=== PATIENT | male | born 1985 | race Caucasian/White ===

== ENCOUNTER 2019-02-02 12:30 | Emergency (ER) | payer OTHER ==
[2019-02-02] MEDS ORDERED: SULFAMETHOXAZOLE/TRIMETHOPRIM 800-160 MG TABLET PO ONE (14:04)
[2019-02-02] MEDS ORDERED: CEPHALEXIN 500 MG CAPSULE PO ONE (14:04)
--- NOTE | 2019-02-02 14:06 | ER Document Report ---
HPI - HPI Patient complains to provider of: skin rash Time Seen by Provider: 02/02/19 13:34 Onset: Last week Onset/Duration: Worse Quality of pain: Achy Pain Level: 2 Context: Patient complains of tender rash to right axilla. Patient denies any fever or history of MRSA. Associated Symptoms: Other - Skin rash. denies: Fever, Headache Exacerbated by: Denies Relieved by: Denies Similar symptoms previously: No Recently seen / treated by doctor: No - ROS ROS below otherwise negative: Yes Systems Reviewed and Negative: Yes All other systems reviewed and negative - CONSTITUTIONAL Constitutional: DENIES: Fever, Chills - EENT EENT: DENIES: Sore Throat - CARDIOVASCULAR Cardiovascular: DENIES: Chest pain - RESPIRATORY Respiratory: DENIES: Trouble Breathing, Coughing - MUSCULOSKELETAL Musculoskeletal: REPORTS: Extremity pain - DERM Skin Problems: Rash Past Medical History - General Information source: Patient - Social History Smoking Status: Current Every Day Smoker Smoking Education Provided: Yes Frequency of alcohol use: None Drug Abuse: None Occupation: [employer] Lives with: Family Family History: Reviewed & Not Pertinent Patient has suicidal ideation: No Patient has homicidal ideation: No Neurological Medical History: Denies: Hx Cerebrovascular Accident, Hx Seizures Renal/ Medical History: Denies: Hx Peritoneal Dialysis Musculoskeletal Medical History: Reports Hx Arthritis - GENERALIZED Surgical Hx: Negative - Immunizations Hx Diphtheria, Pertussis, Tetanus Vaccination: Yes Vertical Provider Document - CONSTITUTIONAL Agree With Documented VS: Yes Exam Limitations: No Limitations General Appearance: WD/WN, No Apparent Distress - INFECTION CONTROL TRAVEL OUTSIDE OF THE [place] IN LAST 30 DAYS: No - HEENT HEENT: Atraumatic, Normal ENT Exam, Normocephalic - NECK Neck: Normal Inspection - RESPIRATORY Respiratory: Breath Sounds Normal, No Respiratory Distress - CARDIOVASCULAR Cardiovascular: Regular Rate, Regular Rhythm Pulses: Normal: Radial - BACK Back: Normal Inspection - MUSCULOSKELETAL/EXTREMETIES Musculoskeletal/Extremeties: MAEW - NEURO Level of Consciousness: Awake, Alert, Appropriate Motor/Sensory: No Motor Deficit - DERM Integumentary: Warm, Dry Notes: Patient with multiple erythematous papular, pustular lesions to right axilla, patient with some lymphadenopathy to right axilla with surrounding erythema, no abscess, no lymphangitis. Course - Re-evaluation Re-evalutation: 02/02/19 Patient with folliculitis with one area worrisome for cellulitis. No drainable abscess at this time. Patient nontoxic in appearance. Discussed good return precautions. Patient stable for discharge at this time. - Vital Signs Vital signs: Temp Pulse Resp BP Pulse Ox 98.0 F 83 18 119/75 99 02/02/19 13:07 02/02/19 13:07 02/02/19 13:07 02/02/19 13:07 02/02/19 13:07 Discharge - Discharge Clinical Impression: Folliculitis Cellulitis Qualifiers: Site of cellulitis: extremity Site of cellulitis of extremity: axilla Laterality: right Qualified Code(s): L03.111 - Cellulitis of right axilla Condition: Stable Disposition: HOME, SELF-CARE Instructions: Cellulitis ([facility]), Cephalexin ([facility]), Folliculitis ([facility]), Trimethoprim-Sulfa ([facility]) Additional Instructions: Return immediately for any new or worsening symptoms Followup with your primary care provider, call tomorrow to make a followup appointment Prescriptions: Cephalexin Monohydrate [Keflex 500 mg Capsule] 500 mg PO Q6H 7 Days capsule Naproxen [Naprosyn 250 Nmg Tablet] 1 tab PO BID #14 tablet Sulfamethoxazole/Trimethoprim [Bactrim Ds Tablet] 1 each PO BID #20 tablet Referrals: [facility] [[facility]] - Follow up as needed
[2019-02-02 14:15] VITALS: BP 140/88
== END 2019-02-02 14:15 | disposition home or self-care (01) ==
LOC: ER 12:30
DX: L73.9 Follicular disorder, unspecified (principal); F17.200 Nicotine dependence, unspecified, uncomplicated
CPT/HCPCS: 99282

== ENCOUNTER 2019-02-26 12:06 | Emergency (ER) | payer OTHER ==
[2019-02-26] MEDS ORDERED: CLINDAMYCIN 600 MG/D5W RTU 600 MG/50 ML RTUPB IV ONE (12:44)
--- NOTE | 2019-02-26 12:47 | ER Document Report ---
ED Medical Screen (RME) - General Chief Complaint: Leg Pain Stated Complaint: LEG SWELLING Time Seen by Provider: 02/26/19 12:40 Primary Care Provider: WILLIAN,BRADFORD [Primary Care Provider] - Follow up as needed TRAVEL OUTSIDE OF THE [place] IN LAST 30 DAYS: No - HPI Notes: 02/26/19 12:44 Patient is a 34-year-old male with no significant past medical history who presents complaining of right anterior lateral knee/right lower leg redness, swelling, and pain over the past couple days. Patient states that he was bit or stung by something to his knee area and since then has noticed progressive symptoms to his right leg. Denies drug allergies or IV drug abuse. Denies any prolonged immobilization, distance travel, recent surgery/trauma, personal cancer history, hormone use, smoking, or previous DVT/PE. Denies LIVE, fever, neck pain, URI, CP, SOB, Abd pain, dysuria, back pain. I have treated and performed a rapid initial assessment of this patient. A comprehensive ED assessment and evaluation of the patient, analysis of test results and completion of medical decision making process will be conducted by additional ED providers. PHYSICAL EXAMINATION: GENERAL: Well-appearing, well-nourished and in no acute distress. A&Ox4. Answers questions appropriately. LUNGS: Breath sounds clear to auscultation bilaterally and equal. No wheezes rales or rhonchi. HEART: Regular rate and rhythm without murmurs, rubs, gallops. Rt LE: 1+ pitting edema with erythema, warmth. + tenderness to the rt anterior lateral knee with associated insect bite/sting and erythema/swelling/warmth. Pt can still move his knee through FROM otherwise. N/V intact distal. No bony tenderness. Tenderness is primarily anterior. Higher suspicion for cellulitis at this time than DVT based on his H&P. - Related Data Allergies/Adverse Reactions: No Known Allergies Allergy (Verified 02/26/19 12:07) Past Medical History - Social History Frequency of alcohol use: None Drug Abuse: None - Past Medical History Cardiac Medical History: Reports: Hx Hypertension Denies: Hx Coronary Artery Disease, Hx Heart Attack Pulmonary Medical History: Denies: Hx Asthma, Hx Bronchitis, Hx COPD, Hx Pneumonia Neurological Medical History: Denies: Hx Cerebrovascular Accident, Hx Seizures Renal/ Medical History: Denies: Hx Peritoneal Dialysis Musculoskeltal Medical History: Reports Hx Arthritis - GENERALIZED - Immunizations Hx Diphtheria, Pertussis, Tetanus Vaccination: Yes Physical Exam - Vital signs Vitals: Temp Pulse Resp BP Pulse Ox 98.3 F 70 20 110/84 95 02/26/19 12:10 02/26/19 12:10 02/26/19 12:10 02/26/19 12:10 02/26/19 12:10 Course - Vital Signs Vital signs: Temp Pulse Resp BP Pulse Ox 98.3 F 70 20 110/84 95 02/26/19 12:10 02/26/19 12:10 02/26/19 12:10 02/26/19 12:10 02/26/19 12:10 Doctor's Discharge - Discharge Referrals: [facility] [[facility]] - Follow up as needed
[2019-02-26 13:36] LABS: ABSOLUTE EOSINOPHILS # (AUTO) 0.1 10^3/uL (0.0-0.6); ABSOLUTE MONOCYTES (AUTO) 1.1 10^3/uL (0.1-1.4); ABSOLUTE NEUT (AUTO) 12.4 10^3/uL (1.7-8.2); BASOPHILS % (AUTO) 0.2 % (0-2); EOSINOPHILS % (AUTO) 0.6 % (0-6); HEMATOCRIT 41.7 % (37.9-51.0); HEMOGLOBIN 14.1 g/dL (13.5-17.0); LYMPHOCYTES % (AUTO) 7.1 % (13-45); MEAN CORPUSCULAR HEMOGLOBIN 31.5 pg (27.0-33.4); MEAN CORPUSCULAR HGB CONC 33.9 g/dL (32.0-36.0); MEAN CORPUSCULAR VOLUME 93 fl (80-97); MONOCYTES % (AUTO) 7.3 % (3-13); PLATELET COUNT 179 10^3/uL (150-450); RED BLOOD COUNT 4.49 10^6/uL (4.35-5.55); RED CELL DISTRIBUTION WIDTH 13.5 % (11.5-14.0); SEGMENTED NEUTROPHILS % (AUTO) 84.8 % (42-78); TOTAL CELLS COUNTED % (AUTO) 100 %; WHITE BLOOD COUNT 14.6 10^3/uL (4.0-10.5)
[2019-02-26 13:55] LABS: ANION GAP 9 (5-19); BLOOD UREA NITROGEN 19 mg/dL (7-20); CALCIUM 9.2 mg/dL (8.4-10.2); CARBON DIOXIDE 28 mmol/L (22-30); CHLORIDE 102 mmol/L (98-107); GLUCOSE 92 mg/dL (75-110); POTASSIUM 4.1 mmol/L (3.6-5.0); SODIUM 138.9 mmol/L (137-145)
--- NOTE | 2019-02-26 16:15 | ER Document Report ---
ED General - General Chief Complaint: Leg Pain Stated Complaint: LEG SWELLING Time Seen by Provider: 02/26/19 12:40 Primary Care Provider: [facility] [[facility]] - Follow up as needed Mode of Arrival: Ambulatory Information source: Patient, [facility] Records Notes: Patient is a 34-year-old male with no significant past medical history who presents complaining of right anterior lateral knee/right lower leg redness, swelling, and pain over the past couple days. Patient states that he was bit or stung by something to his knee area and since then has noticed progressive symptoms to his right leg. Denies drug allergies or IV drug abuse. Denies any prolonged immobilization, distance travel, recent surgery/trauma, personal cancer history, hormone use, smoking, or previous DVT/PE. Denies LIVE, fever, neck pain, URI, CP, SOB, Abd pain, dysuria, back pain. TRAVEL OUTSIDE OF THE [place] IN LAST 30 DAYS: No - HPI Onset: Other Onset/Duration: Gradual, Persistent, Worse Quality of pain: Throbbing Severity: Moderate Pain Level: 2 Associated symptoms: Body/muscle aches, Chills, Sweating. denies: Chest pain, Productive cough, Diarrhea, Earache, Fever, Nausea, Vomiting, Shortness of breath Exacerbated by: Movement Relieved by: Remaining still Similar symptoms previously: No Recently seen / treated by doctor: No - Related Data Allergies/Adverse Reactions: No Known Allergies Allergy (Verified 02/26/19 12:07) Past Medical History - General Information source: Patient - Social History Smoking Status: Never Smoker Frequency of alcohol use: None Drug Abuse: None Lives with: Spouse/Significant other Family History: Reviewed & Not Pertinent Patient has suicidal ideation: No Patient has homicidal ideation: No - Past Medical History Cardiac Medical History: Reports: Hx Hypertension Denies: Hx Coronary Artery Disease, Hx Heart Attack Pulmonary Medical History: Denies: Hx Asthma, Hx Bronchitis, Hx COPD, Hx Pneumonia Neurological Medical History: Denies: Hx Cerebrovascular Accident, Hx Seizures Renal/ Medical History: Denies: Hx Peritoneal Dialysis Musculoskeletal Medical History: Reports Hx Arthritis - GENERALIZED - Immunizations Hx Diphtheria, Pertussis, Tetanus Vaccination: Yes Review of Systems - Review of Systems Notes: REVIEW OF SYSTEMS: CONSTITUTIONAL : Denies fever, chills, or sweats. Denies recent illness. Denies weight loss, recent hospitalizations. EENT: Denies visual changes, eye pain. Denies sore throat, oral lesions, difficulty swallowing. CARDIOVASCULAR: Denies chest pain. Denies palpitations. Denies lower extremity edema. RESPIRATORY: Denies cough. Denies shortness of breath, wheezing. GASTROINTESTINAL: Denies abdominal pain or distention. Denies nausea, vomiting, or diarrhea. Denies blood in vomitus, stools, or per rectum. Denies black, tarry stools. Denies constipation. GENITOURINARY: Denies difficulty urinating, painful urination, frequency, blood in urine, testicular pain or penile discharge. MUSCULOSKELETAL: Denies back or neck pain or stiffness. + joint pain or swelling. SKIN: Right lower extremity erythema HEMATOLOGIC : Denies easy bruising or bleeding. LYMPHATIC: Denies swollen glands. NEUROLOGICAL: Denies confusion or altered mental status. Denies loss of consciousness. Denies dizziness or lightheadedness. Denies headache. Denies weakness or paralysis. Denies problems difficulty with ambulation, slurred speech. Denies sensory loss, numbness, or tingling. Denies seizures. PSYCHIATRIC: Denies anxiety or stress. Denies depression, suicidal ideation, or Physical Exam - Vital signs Vitals: Temp Pulse Resp BP Pulse Ox 98.3 F 70 20 110/84 95 02/26/19 12:10 02/26/19 12:10 02/26/19 12:10 02/26/19 12:10 02/26/19 12:10 - Notes Notes: PHYSICAL EXAMINATION: GENERAL: Well-appearing, well-nourished and in no acute distress. HEAD: Atraumatic, normocephalic. EYES: Pupils equal round and reactive to light, extraocular movements intact, sclera anicteric, conjunctiva are normal. ENT: Nares patent, oropharynx clear without exudates. Moist mucous membranes. NECK: Normal range of motion, supple without lymphadenopathy LUNGS: Breath sounds clear to auscultation bilaterally and equal. No wheezes r ales or rhonchi. HEART: Regular rate and rhythm without murmurs ABDOMEN: Soft, nontender, nondistended abdomen. No guarding, no rebound. No masses appreciated. Musculoskeletal: Normal range of motion, no pitting or edema. No cyanosis. Right lower extremity-swelling, erythema, tenderness with palpation to the anterior soto. Patient has full range of motion of the right knee, extensor mechanism intact. Pinpoint lesion over the patella with associated erythema. NEUROLOGICAL: Cranial nerves grossly intact. Normal speech, normal gait. Normal sensory, motor exams PSYCH: Normal mood, normal affect. SKIN: Right lower extremity-swelling, erythema, tenderness with palpation to the anterior soto. Patient has full range of motion of the right knee, extensor mechanism intact. Pinpoint lesion over the patella with associated erythema Course - Re-evaluation Re-evalutation: 02/27/19 00:51 Laboratory 02/26/19 02/26/19 13:00 13:00 WBC 14.6 H RBC 4.49 Hgb 14.1 Hct 41.7 MCV 93 MCH 31.5 MCHC 33.9 RDW 13.5 Plt Count 179 Seg Neutrophils % 84.8 H Lymphocytes % 7.1 L Monocytes % 7.3 Eosinophils % 0.6 Basophils % 0.2 Absolute Neutrophils 12.4 H Absolute Lymphocytes 1.0 Absolute Monocytes 1.1 Absolute Eosinophils 0.1 Absolute Basophils 0.0 Sodium 138.9 Potassium 4.1 Chloride 102 Carbon Dioxide 28 Anion Gap 9 BUN 19 Creatinine 0.69 Est GFR ( Amer) > 60 Est GFR (Non-Af Amer) > 60 Glucose 92 Calcium 9.2 Knee X-Ray 02/26/19 16:15 IMPRESSION: No joint effusion. No significant bony pathology. Soft tissue prominence prepatellar region. See above discussion Tibia/Fibula X-Ray 02/26/19 16:15 IMPRESSION: No bony pathology. Generalized prominence of the soft tissue possibly related to the history of swelling. Temp Pulse Resp BP Pulse Ox 98.9 F 70 21 H 129/80 H 100 02/26/19 18:01 02/26/19 12:10 02/26/19 18:01 02/26/19 18:01 02/26/19 18:01 34-year-old male patient is tolerating p.o. He is comfortable with the plan and discharged home. With no significant past medical history presents with concern of right lower leg pain and swelling that started 2 days prior to arrival. Patient states that he noticed a small pimple-like lesion on his right knee which he popped and reports that the next day he woke up with swelling and redness that has progressively worsened. Patient denies any fever chills nausea, vomiting, shortness of breath. No prior history of DVT PE. Vitals reviewed and within normal limits. Patient is well-appearing. He does not appear toxic or dehydrated. He did receive clindamycin prior to my exam. Patient states lower extremity Doppler obtained and significant for an extensive superficial vein thrombosis. Because of the extension and patient was placed on Xarelto. He did receive his first dose in the emergency department. Plan at this time is for the patient to obtain his Xarelto tomorrow morning and if unable to due to insurance issues return to the emergency department. patient is able to obtain the medication without difficulty [facility] 02/27/19 00:[address] Palomares who reports a superficial vein thrombosis that is extensive. We discussed that some literature does show with that significant of extension it should be treated. Patient was evaluated and treated as appropriate for the patient's presenting symptoms and complaint, with consideration of any critical or life threatening conditions that may be associated with their obtained history and exam as noted above. All results were discussed with patient is. Patient provided the opportunity to ask questions, and express concerns. Patient was educated on treatments based on their presumed diagnosis as noted above. At this time we will discharge the patient with return precautions and follow-up recommendations. Verbal discharge instructions given a the bedside. Medication warnings reviewed. Patient is in agreement with this plan and has verbalized understanding of return precautions. After careful consideration I feel that that patient can be safely discharged from the emergency department, they were advised to followup with a primary care physician in 2-3 days. Dictation on this chart was performed using voice recognition software and may result in unintended grammatical, spelling, syntax or errors. - Vital Signs Vital signs: Temp Pulse Resp BP Pulse Ox 98.9 F 70 21 H 129/80 H 100 02/26/19 18:01 02/26/19 12:10 02/26/19 18:01 02/26/19 18:01 02/26/19 18:01 - Laboratory Result Diagrams: 02/26/19 13:00 02/26/19 13:00 Laboratory results interpreted by me: 02/26/19 13:00 WBC 14.6 H Seg Neutrophils % 84.8 H Lymphocytes % 7.1 L Absolute Neutrophils 12.4 H - Diagnostic Test Radiology reviewed: Image reviewed, Reports reviewed Discharge - Discharge Clinical Impression: Cellulitis of right lower extremity, Acute superficial venous thrombosis of right lower extremity Condition: Good Disposition: HOME, SELF-CARE Instructions: Cellulitis ([facility]), DVT Outpatient Treatment ([facility]), Possible Evolving Leg DVT ([facility]) Additional Instructions: The rash is likely due to infection of your skin. You need to take the antibiotics as prescribed. Do not stop even if the rash goes away until you have completed all the antibiotics. The area of redness was traced out here in the emergency department with a marking pen. You need to return to emergency department if the redness spreads outside of this area by more than 2 cm in any direction. You should also return if you develop fevers with temperature greater than 101, persistent vomiting, worsening pain, or have any other symptoms that are concerning to you. You have been diagnosed with a clot in your extremity. You have been started on a blood thinner called rivaroxaban. You need to take 15 mg twice daily for the first 21 days. You have been prescribed this medication for the first 3 weeks. It is very important that you follow-up with your primary care physician because after the first 3 weeks, you will be transitioned to 20 mg once daily. Please return to emergency department if you notice worsening pain to the affected area, you began having rectal bleeding, hit your head, develop shortness of breath or chest pain, or have any other symptoms that are concerning to you. Prescriptions: Cephalexin Monohydrate [Keflex 500 mg Capsule] 500 mg PO BID 10 Days #20 capsule Rivaroxaban [Xarelto 15 mg Tablet] 15 mg PO BID #42 tablet Sulfamethoxazole/Trimethoprim [Bactrim Ds Tablet] 1 each PO BID 10 Days #20 tablet [facility]errals: [facility] [[facility]] - Follow up in 3-5 days
--- NOTE | 2019-02-26 16:49 | RADIOLOGY REPORT (SQ) ---
EXAM DESCRIPTION: KNEE RIGHT 2 VIEWS COMPLETED DATE/TIME: 02/26/2019 4:32 pm REASON FOR STUDY: swelling redness COMPARISON: None. NUMBER OF VIEWS: Two view. TECHNIQUE: AP and lateral radiographic images acquired of the right knee. LIMITATIONS: None. FINDINGS: BONES: No fracture. No osteophytes. No worrisome bone lesions. JOINT: No effusion. No chondrocalcinosis. OTHER: Prepatellar soft tissue appears prominent -body habitus versus pathologic swelling. IMPRESSION: No joint effusion. No significant bony pathology. Soft tissue prominence prepatellar r egion. See above discussion TECHNICAL DOCUMENTATION: JOB ID: [id number] Reading location - IP/workstation name: [email or web address]
--- NOTE | 2019-02-26 16:51 | RADIOLOGY REPORT (SQ) ---
EXAM DESCRIPTION: TIBIA FIBULA RIGHT COMPLETED DATE/TIME: 02/26/2019 4:32 pm REASON FOR STUDY: swelling redness COMPARISON: None. NUMBER OF VIEWS: Two views. TECHNIQUE: Two radiographic images acquired of the right tibia and fibula to include the knee and an kle in at least one projection. LIMITATIONS: None. FINDINGS: MINERALIZATION: Normal. BONES: No acute fracture or dislocation. No worrisome bone lesions. SOFT TISSUES: Prominent OTHER: No other significant finding. IMPRESSION: No bony pathology. Generalized prominence of the soft tissue possibly related to the hi story of swelling. TECHNICAL DOCUMENTATION: JOB ID: [id number] [employer]- All Rights Reserved Reading location - IP/workstation name: [email or web address]
[2019-02-26] MEDS ORDERED: RIVAROXABAN 15 MG TABLET PO ONE (18:05)
[2019-02-26 18:41] VITALS: BP 129/80
--- NOTE | 2019-02-27 08:51 | XCELERA REPORT ---
[address] [address] Lower Extremity Venous Evaluation Procedure: Color flow and duplex imaging of the veins of the right lower extremity as well as the left Common Femoral vein. Right Sided Venous Evaluation Enlarged vein, no Colour flow or compression in the Greater Saphenous vein from knee to ankle. Otherwise normal vessel filling wall to wall, compression and augmentation as well as Colour flow down to the infrageniculate veins. Left Sided Venous Evaluation The left common femoral vein is fully compressible. Spontaneous and phasic flow is present in the left common femoral vein. Critical Findings Discussed with Dr Paige at about 1500 hours. Interpretation Summary No duplex evidence of DVT or obstruction in the right lower extremity nor in the left Common Femoral vein. Quite extensive superficial phlebitis in the left Greater Saphenous, longer than 6 cms. Name: CHARMAINE BYRNE Age: 34 yrs Gender: Male : 1985 Patient Status: Emergency Patient Location: ER Study Date: 02/26/2019 05:29 PM Reason For Study: rle swelling redness Ordering Physician: DARLINE PAIGE Performed By: Malena Riley : DARLINE PAIGE > Anton Palomares
== END 2019-02-26 18:53 | disposition home or self-care (01) ==
LOC: ER 12:06
DX: I82.401 Acute embolism and thrombosis of unspecified deep veins of right lower extremity (principal); L03.115 Cellulitis of right lower limb; M25.561 Pain in right knee; M79.89 Other specified soft tissue disorders; M79.10 Myalgia, unspecified site; R61 Generalized hyperhidrosis; I10 Essential (primary) hypertension
CPT/HCPCS: 36415; 80048; 85025; 87040; 93971; 96365; 96366; 99284

== ENCOUNTER 2019-05-14 13:20 | Emergency (ER) | payer OTHER ==
--- NOTE | 2019-05-14 15:46 | ER Document Report ---
ED Extremity Problem, Lower - General Chief Complaint: Leg Pain Stated Complaint: RIGHT LEG PAIN Time Seen by Provider: 05/14/19 14:11 [facility] [[facility] - Follow up as needed Mode of Arrival: Ambulatory Information source: Patient Notes: Patient is a 34-year-old male presenting to the emergency department with request for venous Doppler ultrasound to his right leg. Patient reports history of a DVT that was diagnosed in February. He states he was placed on Xarelto for 3 weeks. He states he has now had increased pain to his posterior right calf over the last 2 days. Denies any increased swelling or redness. He states he went to see his PCP at the [facility] who referred him to the emergency department. He has not had any recent travel, he does not smoke but he does have a history of the DVT in February. TRAVEL OUTSIDE OF THE [place] IN LAST 30 DAYS: No - Related Data Allergies/Adverse Reactions: No Known Allergies Allergy (Verified 02/26/19 12:07) Past Medical History - General Information source: Patient - Social History Smoking Status: Former Smoker Frequency of alcohol use: None Drug Abuse: None Family History: Reviewed & Not Pertinent Patient has suicidal ideation: No Patient has homicidal ideation: No - Past Medical History Cardiac Medical History: Reports: Hx Hypertension Denies: Hx Coronary Artery Disease, Hx Heart Attack Pulmonary Medical History: Denies: Hx Asthma, Hx Bronchitis, Hx COPD, Hx Pneumonia Neurological Medical History: Denies: Hx Cerebrovascular Accident, Hx Seizures Renal/ Medical History: Denies: Hx Peritoneal Dialysis Musculoskeletal Medical History: Reports Hx Arthritis - GENERALIZED - Immunizations Hx Diphtheria, Pertussis, Tetanus Vaccination: Yes Review of Systems - Review of Systems Constitutional: No symptoms reported EENT: No symptoms reported Cardiovascular: No symptoms reported Respiratory: No symptoms reported Gastrointestinal: No symptoms reported Genitourinary: No symptoms reported Male Genitourinary: No symptoms reported Musculoskeletal: See HPI Skin: No symptoms reported Hematologic/Lymphatic: No symptoms reported Neurological/Psychological: No symptoms reported Physical Exam - Vital signs Vitals: Temp Pulse Resp BP Pulse Ox 98.0 F 71 16 123/89 H 97 05/14/19 13:28 05/14/19 13:28 05/14/19 13:28 05/14/19 13:28 05/14/19 13:28 - Notes Notes: PHYSICAL EXAMINATION: GENERAL: Well-appearing, well-nourished and in no acute distress. HEAD: Atraumatic, normocephalic. EYES: Pupils equal round and reactive to light, extraocular movements intact, sclera anicteric, conjunctiva are normal. ENT: Nares patent, oropharynx clear without exudates. Moist mucous membranes. NECK: Normal range of motion, supple without lymphadenopathy LUNGS: Breath sounds clear to auscultation bilaterally and equal. No wheezes rales or rhonchi. HEART: Regular rate and rhythm without murmurs ABDOMEN: Soft, nontender, nondistended abdomen. No guarding, no rebound. No masses appreciated. Musculoskeletal: Normal range of motion, no pitting or edema. No cyanosis. No unilateral leg swelling noted. Tenderness to palpation to right posterior calf. NEUROLOGICAL: Cranial nerves grossly intact. Normal speech, normal gait. Normal sensory, motor exams PSYCH: Normal mood, normal affect. SKIN: Warm, Dry, normal turgor, no rashes or lesions noted. Course - Re-evaluation Re-evalutation: Venous Doppler ultrasound was negative for any acute DVT however it did show a small SVT consistent with patient's previous findings. Will restart patient on Xarelto as he was prematurely stopped on this. Patient does have a follow-up appointment Saturday with his primary care provider encouraged to follow-up with his appointment. Patient verbalizes understanding and agreement with plan. - Vital Signs Vital signs: Temp Pulse Resp BP Pulse Ox 98.6 F 60 18 120/79 97 05/14/19 16:58 05/14/19 16:58 05/14/19 16:58 05/14/19 16:58 05/14/19 16:58 - Laboratory Laboratory results interpreted by me: 05/14/19 15:55 APTT 37.0 H Discharge - Discharge Clinical Impression: Hx of deep venous thrombosis Leg pain Qualifiers: Laterality: right Qualified Code(s): M79.604 - Pain in right leg Condition: Stable Disposition: HOME, SELF-CARE Additional Instructions: You are seen in the emergency department today with concerns for a recurring DVT. There is no evidence of a DVT on the ultrasound however there is evidence of a small superficial vein thrombosis. I am restarting you on the Xarelto as discussed. Please keep the appointment you have with your primary care provider for Saturday. Return to the emergency department with any new or worsening symptoms to include difficulty breathing, shortness of breath or chest pain. Prescriptions: Rivaroxaban [Xarelto 15 mg Tablet] 15 mg PO BID #42 tablet Referrals: [facility] [[facility]] - Follow up as needed
[2019-05-14 16:17] LABS: INTERNATIONAL RATION (INR) 1.08; PROTHROMBIN TIME 14.1 SEC (11.4-15.4)
--- NOTE | 2019-05-14 16:57 | RADIOLOGY REPORT (SQ) ---
EXAM DESCRIPTION: VENOUS UNILATERAL LOWER COMPLETED DATE/TIME: 05/14/2019 4:15 pm REASON FOR STUDY: R calf pain, hx of DVT COMPARISON: 02/26/2019 TECHNIQUE: Dynamic and static hand scale and color images acquired of the right leg venous system. S elected spectral images acquired with additional compression and augmentation maneuvers. The contrala teral common femoral vein and saphenofemoral junction were also imaged. Images stored on PACS. LIMITATIONS: None. FINDINGS: COMMON FEMORAL: Normal phasicity, compression and augmentation. No visualized echogenic ma terial on hand scale. No defects on color images. FEMORAL: Normal compression and augmentation. No visualized echogenic material on hand scale. No defe cts on color images. POPLITEAL: Normal compression, augmentation. No visualized echogenic material on hand scale. No defec ts on color images. CALF VESSELS: Normal compression, augmentation. No visualized echogenic material on hand scale. No de fects on color images. GSV and SSV: There is acute thrombus noted in the distal right greater saphenous vein. Small sapheno us vein is patent. ANY DEEP VENOUS INSUFFICIENCY: Not evaluated. ANY EVIDENCE OF POPLITEAL CYST: No. OTHER: No other significant finding. CONTRALATERAL COMMON FEMORAL VEIN AND SAPHENOFEMORAL JUNCTION: Normal phasicity, compression and augmentation. No visualized echogenic material on hand scale. No de fects on color images. IMPRESSION: 1. No evidence of DVT. 2. Acute superficial thrombophlebitis involving the distal right greater saphenous vein. TECHNICAL DOCUMENTATION: JOB ID: [id number] [employer]- All Rights Reserved Reading location - IP/workstation name: [email or web address]
[2019-05-14 16:59] VITALS: BP 120/79
== END 2019-05-14 16:58 | disposition home or self-care (01) ==
LOC: ER 13:20
DX: M79.604 Pain in right leg (principal); I10 Essential (primary) hypertension; Z86.718 Personal history of other venous thrombosis and embolism
CPT/HCPCS: 36415; 85610; 85730; 93971; 99284

== ENCOUNTER 2019-09-01 11:54 | Emergency (ER) | payer OTHER ==
[2019-09-01 12:06] VITALS: BP 126/87
--- NOTE | 2019-09-01 12:41 | ER Document Report ---
HPI - HPI Patient complains to provider of: right side pain, nose bleed Time Seen by Provider: 09/01/19 12:33 Onset: Just prior to arrival Onset/Duration: Sudden Quality of pain: No pain Context: This 34-year-old male presents emergency department with complaints of sudden onset right lateral rib pain at approximately 10:00 this morning that is gone. Reports he sneezed afterwards and started having a nosebleed which lasted approximately 2 hours. Reports it stopped prior to arrival. Patient denies pain at this time. No nosebleed at this time. Patient denies trauma fever vomiting. Patient reports he has been on Xarelto for history of DVT. He has not been on it since last week because he just had a vasectomy done. He is supposed to restart the Xarelto next Saturday. He denies shortness of breath. Denies dizziness. Denies symptoms at this time. Denies history of nosebleeds. Associated Symptoms: None Exacerbated by: Denies Relieved by: Denies Similar symptoms previously: No Recently seen / treated by doctor: No - REPRODUCTIVE Reproductive: DENIES: : Past Medical History - General Information source: Patient - Social History Smoking Status: Former Smoker Cigarette use (# per day): No Frequency of alcohol use: None Drug Abuse: None Lives with: Family Family History: Reviewed & Not Pertinent Patient has suicidal ideation: No Patient has homicidal ideation: No - Past Medical History Cardiac Medical History: Reports: Hx DVT, Hx Hypertension Denies: Hx Coronary Artery Disease, Hx Heart Attack Pulmonary Medical History: Denies: Hx Asthma, Hx Bronchitis, Hx COPD, Hx Pneumonia Neurological Medical History: Denies: Hx Cerebrovascular Accident, Hx Seizures Renal/ Medical History: Denies: Hx Peritoneal Dialysis Musculoskeletal Medical History: Reports Hx Arthritis - GENERALIZED Surgical Hx: Negative - Immunizations Hx Diphtheria, Pertussis, Tetanus Vaccination: Yes Vertical Provider Document - CONSTITUTIONAL Agree With Documented VS: Yes Exam Limitations: No Limitations General Appearance: WD/WN, No Apparent Distress - INFECTION CONTROL TRAVEL OUTSIDE OF THE [place] IN LAST 30 DAYS: No - HEENT HEENT: Atraumatic, Normal ENT Exam, Normocephalic. negative: Conjuctival Injection, Pharyngeal Erythema Notes: No active nasal bleeding. No septal hematoma no tenderness to touch. - NECK Neck: Normal Inspection, Supple. negative: Lymphadenopathy-Left, Lymphadenopathy-Right - RESPIRATORY Respiratory: Breath Sounds Normal, No Respiratory Distress, Chest Non-Tender. negative: Rhonchi, Wheezing - CARDIOVASCULAR Cardiovascular: Regular Rate, Regular Rhythm - GI/ABDOMEN Gastrointestinal: Abdomen Soft, Abdomen Non-Tender - BACK Back: negative: CVA Tenderness-Right, CVA Tenderness-Left - MUSCULOSKELETAL/EXTREMETIES Musculoskeletal/Extremeties: KATHLEEN SEN - NEURO Level of Consciousness: Awake, Alert, Appropriate Motor/Sensory: No Motor Deficit - DERM Integumentary: Warm, Dry Course - Re-evaluation Re-evalutation: 09/01/19 15:04 34-year-old male presents emergency department with left nare nosebleed that lasted approximately 2 hours. He reports bleeding stopped prior to arrival. He reports that the bleeding included blood clots and possibly tissue. He denies trauma. Denies fever vomiting diarrhea. Reports he had a sudden onset of right-sided rib pain that went away as quick as it came. He denies shortness of breath dizziness. Patient denies recent trip. Patient reports he has a history of a DVT but denies calf pain at this time. Reports he was taken off of Xarelto because he had a vasectomy done. He is slated to restart the Xarelto next Saturday. Patient looks good no active nasal bleeding. No pain on palpation to his ribs. Respiratory rate even unlabored. Patient is speaking in clear sentences no shortness of breath. Denies calf pain. No swelling to his calf no erythema. Vital signs are stable. Heart rate 80 bpm. Patient is speaking in clear sentences I do not believe the patient has a DVT PE at this time. He was instructed to not blow his nose. He was also instructed to return for any trouble breathing concerns. He verbalized understanding to all instructions. - Vital Signs Vital signs: Temp Pulse Resp BP Pulse Ox 98.2 F 80 16 126/87 H 100 09/01/19 12:02 09/01/19 12:02 09/01/19 12:02 09/01/19 12:02 09/01/19 12:02 Discharge - Discharge Clinical Impression: Bleeding from the nose, Rib pain on right side Condition: Stable Disposition: HOME, SELF-CARE Instructions: Nosebleed Instructions (OM) Additional Instructions: *You have been evaluated for nosebleed and right side rib pain *Do not blow your nose *[facility] *Return to ED for worsening condition, changes, needs, concerns, return of nosebleed or return of side pain Referrals: [facility] [[facility]] - Follow up in 3-5 days
== END 2019-09-01 12:43 | disposition home or self-care (01) ==
LOC: ER 11:54
DX: R04.0 Epistaxis (principal); R07.81 Pleurodynia; Z86.718 Personal history of other venous thrombosis and embolism; Z79.01 Long term (current) use of anticoagulants; Z87.891 Personal history of nicotine dependence; I10 Essential (primary) hypertension
CPT/HCPCS: 99283